=== PATIENT | male | born 1945 | race Caucasian/White ===

== ENCOUNTER → 2016-03-14 | Outpatient (CLI) | payer BC | END | disposition home or self-care (01) | LOC: PCVCIMAG 09:23 | PROVIDERS: ATTEND Internal Medicine | DX: I25.10 Atherosclerotic heart disease of native coronary artery without angina pectoris (principal); I65.23 Occlusion and stenosis of bilateral carotid arteries; G47.30 Sleep apnea, unspecified; I77.9 Disorder of arteries and arterioles, unspecified; I77.810 Thoracic aortic ectasia; E78.00 Pure hypercholesterolemia, unspecified; I10 Essential (primary) hypertension; I73.9 Peripheral vascular disease, unspecified | CPT/HCPCS: 80061; 93005; 93880 ==

== ENCOUNTER → 2016-09-19 | Outpatient (CLI) | payer BC | END | disposition home or self-care (01) | LOC: PCVCCLINIC 09:50 | PROVIDERS: ATTEND Internal Medicine | DX: I25.10 Atherosclerotic heart disease of native coronary artery without angina pectoris (principal); I10 Essential (primary) hypertension; I71.2 Thoracic aortic aneurysm, without rupture; E11.9 Type 2 diabetes mellitus without complications; G47.33 Obstructive sleep apnea (adult) (pediatric); I73.9 Peripheral vascular disease, unspecified; I65.23 Occlusion and stenosis of bilateral carotid arteries; E03.9 Hypothyroidism, unspecified; J45.909 Unspecified asthma, uncomplicated; Z87.442 Personal history of urinary calculi; Z95.1 Presence of aortocoronary bypass graft; Z79.82 Long term (current) use of aspirin; Z79.84 Long term (current) use of oral hypoglycemic drugs | CPT/HCPCS: 80061; G0463 ==

== ENCOUNTER → 2016-09-19 | Outpatient (CLI) | payer BC ==
--- NOTE | 2016-09-19 10:09 | PCVCIMAG ---
APPROVED REPORT Study performed: 09/19/2016 09:00:10 EXAM: Comprehensive 2D, Doppler, and color-flow Echocardiogram Patient Location: Echo lab Status: routine Other Information Study Quality: Adequate Indications CAD Thoracic Aortic Aneurysm 2D Dimensions LVEF(%): 39.24 (>50%) IVSd: 17.55 (7-11mm) LVDd: 37.84 mm PWd: 15.87 (7-11mm)Ascending Ao: 42.69 (22-36mm) LVDs: 30.78 (25-40mm) Left Atrium: 44.83 (27-40mm) Aortic Root: 41.30 mm LV Single Plane 4CH: 59.51 % LV Single Plane 2CH: 56.62 %Carrasco's LVEF: 58.06 % Biplane EF: 58.4 % Volumes Left Atrial Volume (Systole) Single Plane 4CH: 71.99 mLSingle Plane 2CH: 86.26 mL LA ESV Index: 36.00 mL/m2 Aortic Valve AoV Peak Amos.: 1.54 m/s AO Peak Gr.: 9.47 mmHgLVOT Max P.51 mmHg LVOT Max V: 0.79 m/s Mitral Valve E/A Ratio: 0.8 MV Decel. Time: 282.00 ms MV E Max Amos.: 0.57 m/s MV A Amos.: 0.69 m/s IVRT: 131.49 ms Pulmonary Valve PV Peak Amos.: 0.72 m/sPV Peak Gr.: 2.09 mmHg Pulmonary Vein P Vein S: 0.23 m/sP Vein A: 0.27 m/s P Vein D: 0.32 m/sP Vein A Dur.: 117.6 msec P Vein S/D Ratio: 0.72 Left Ventricle The left ventricle is normal size. There is normal LV segmental wall motion. Moderate concentric left ventricular hypertrophy. Left ventricular systolic function is normal. The left ventricular ejection fraction is within the normal range. LVEF is 55-60%. Grade I diastolic dysfunction Right Ventricle The right ventricle is normal size. The right ventricular systolic function is normal. Atria Left atrium is mildly dilated. Right atrium is mildly dilated. Aortic Valve The aortic valve is calcified without stenosis No aortic regurgitation is present. There is no aortic valvular stenosis. Mitral Valve Mild-moderate mitral annular calcification No mitral valve regurgitation noted. No evidence of mitral valve stenosis. Tricuspid Valve The tricuspid valve is normal in structure. There is no tricuspid valve regurgitation noted. Pulmonic Valve The pulmonary valve is normal in structure. There is no pulmonic valvular regurgitation. 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 IVC is normal in size and collapses with >50% inspiration Pericardium There is no pericardial effusion. <Conclusion> Left ventricular systolic function is normal. There is normal LV segmental wall motion. Moderate LVH LVEF is 55-60%. Grade I diastolic dysfunction The aortic valve is calcified without stenosis or insufficiency Mild-moderate mitral annular calcification No mitral valve regurgitation noted. 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 There is no pericardial effusion.
== END | disposition home or self-care (01) ==
LOC: PCVCIMAG 09:38
PROVIDERS: ATTEND Internal Medicine
DX: I44.0 Atrioventricular block, first degree (principal); I51.7 Cardiomegaly; I25.10 Atherosclerotic heart disease of native coronary artery without angina pectoris; I10 Essential (primary) hypertension; I71.2 Thoracic aortic aneurysm, without rupture; I73.9 Peripheral vascular disease, unspecified; G47.33 Obstructive sleep apnea (adult) (pediatric); E11.9 Type 2 diabetes mellitus without complications; I70.0 Atherosclerosis of aorta; K21.9 Gastro-esophageal reflux disease without esophagitis; E03.9 Hypothyroidism, unspecified; Z87.442 Personal history of urinary calculi; Z79.82 Long term (current) use of aspirin; Z79.84 Long term (current) use of oral hypoglycemic drugs; Z95.1 Presence of aortocoronary bypass graft
CPT/HCPCS: 80061; 93005; 93306; G0463

== ENCOUNTER → 2017-03-30 | Outpatient (CLI) | payer BC | END | disposition home or self-care (01) | LOC: PCVCCLINIC 09:57 | DX: I25.10 Atherosclerotic heart disease of native coronary artery without angina pectoris (principal); I73.9 Peripheral vascular disease, unspecified; E78.5 Hyperlipidemia, unspecified; I10 Essential (primary) hypertension; I65.23 Occlusion and stenosis of bilateral carotid arteries; I71.2 Thoracic aortic aneurysm, without rupture; G47.33 Obstructive sleep apnea (adult) (pediatric); E11.9 Type 2 diabetes mellitus without complications; R94.31 Abnormal electrocardiogram [ECG] [EKG]; I45.10 Unspecified right bundle-branch block; Z79.899 Other long term (current) drug therapy; Z79.82 Long term (current) use of aspirin; Z79.84 Long term (current) use of oral hypoglycemic drugs | CPT/HCPCS: 80061; 93005; G0463 ==

== ENCOUNTER → 2017-09-29 | Outpatient (CLI) | payer MEDICARE, BC | END | disposition home or self-care (01) | LOC: PCVCIMAG 08:31 | DX: I65.23 Occlusion and stenosis of bilateral carotid arteries (principal); I73.9 Peripheral vascular disease, unspecified; E78.00 Pure hypercholesterolemia, unspecified; I10 Essential (primary) hypertension; E11.9 Type 2 diabetes mellitus without complications; I25.10 Atherosclerotic heart disease of native coronary artery without angina pectoris; I71.2 Thoracic aortic aneurysm, without rupture; G47.33 Obstructive sleep apnea (adult) (pediatric); Z88.8 Allergy status to other drugs, medicaments and biological substances; Z79.82 Long term (current) use of aspirin; Z79.899 Other long term (current) drug therapy | CPT/HCPCS: 93005; 93306; 93880; 93925; G0463 ==

== ENCOUNTER → 2018-04-01 | Outpatient (CLI) | payer BC | END | disposition home or self-care (01) | LOC: PCVCCLINIC 11:22 | PROVIDERS: ATTEND Internal Medicine | DX: I25.10 Atherosclerotic heart disease of native coronary artery without angina pectoris (principal); I73.9 Peripheral vascular disease, unspecified; E78.5 Hyperlipidemia, unspecified; I10 Essential (primary) hypertension; I65.23 Occlusion and stenosis of bilateral carotid arteries; I71.2 Thoracic aortic aneurysm, without rupture; G47.33 Obstructive sleep apnea (adult) (pediatric); E11.9 Type 2 diabetes mellitus without complications; K21.9 Gastro-esophageal reflux disease without esophagitis; E78.00 Pure hypercholesterolemia, unspecified; E03.9 Hypothyroidism, unspecified; G47.30 Sleep apnea, unspecified; Z79.82 Long term (current) use of aspirin; Z88.8 Allergy status to other drugs, medicaments and biological substances; Z72.89 Other problems related to lifestyle | CPT/HCPCS: 93005; G0463 ==

== ENCOUNTER → 2018-10-05 | Outpatient (CLI) | payer BC ==
--- NOTE | 2018-10-05 08:56 | PCVCIMAG ---
APPROVED REPORT Indications Stenosis Risk Factors Diabetes Doppler Spectral Velocity Analysis PSV / EDVPSV / EDV ECA (R) 85 / 12 cm/sECA (L) 108 / 13 cm/s dICA (R) 53 / 19 cm/sdICA (L) 69 / 26 cm/s Donny (R) 65 / 19 cm/smICA (L) 94 / 24 cm/s pICA (R) 76 / 16 cm/spICA (L) 110 / 31 cm/s Bulb (R) 64 / 13 cm/sBulb (L) 93 / 24 cm/s dCCA (R) 61 / 13 cm/sdCCA (L) 64 / 18 cm/s mCCA (R) 79 / 18 cm/smCCA (L) 99 / 20 cm/s Vert (R) 32 / 12 cm/sVert (L) 37 / 11 cm/s ICA/CCA 0.95ICA/CCA 1.11 Basic Measurements Blood Pressure: Pulses: Right Left RightLeft Brachial(Sitting) 120/87kpQa536/74mmHgTemporal Real Time B-Mode Imaging Vert. (R)AntegradeVert. (L)Antegrade Findings The right carotid bulb has moderate plaque. The right proximal internal carotid artery shows <40% stenosis. The right common carotid artery shows no significant stenosis. The right external carotid artery shows no significant stenosis. The left carotid bulb has moderate calcified plaque. The left proximal internal carotid artery shows <40% stenosis. The left common carotid artery shows no significant stenosis. The left external carotid artery shows no significant stenosis. Conclusion 1. Right internal carotid artery stenosis (<40%) 2. Left internal carotid artery stenosis (<40%) 3. Antegrade vertebral flow
--- NOTE | 2018-10-05 09:34 | PCVCIMAG ---
APPROVED REPORT Study performed: 10/05/2018 08:36:19 EXAM: Comprehensive 2D, Doppler, and color-flow Echocardiogram Patient Location: Echo lab Status: routine BSA: 2.21 HR: 64 bpmBP: 124/74 mmHg Rhythm: NSR Other Information Study Quality: Adequate Technically limited study due to body habitus. Risk Factors: Cardiac Risk Factors: HTN, Hyperlipidemia, DM Indications CAD Thoracic aortic aneurysm 2D Dimensions IVSd: 16.20 (7-11mm)LVOT Diam: 26.00 (18-24mm) LVDd: 44.54 mm PWd: 16.40 (7-11mm)Ascending Ao: 43.82 (22-36mm) LVDs: 30.67 (25-40mm) Left Atrium: 40.55 (27-40mm) Aortic Root: 46.17 mm LV Single Plane 4CH: 58.24 % LV Single Plane 2CH: 64.22 % Volumes Left Atrial Volume (Systole) Single Plane 4CH: 112.49 mLSingle Plane 2CH: 86.46 mL LA ESV Index: 48.00 mL/m2 Aortic Valve AoV Peak Amos.: 1.73 m/s AO Peak Gr.: 11.99 mmHgLVOT Max P.80 mmHg LVOT Max V: 0.80 m/s JACQUI Vmax: 2.41 cm2 Mitral Valve E/A Ratio: 1.0 MV Decel. Time: 223.87 ms MV E Max Amos.: 0.65 m/s MV A Amos.: 0.62 m/s IVRT: 96.89 ms Pulmonary Valve PV Peak Amos.: 0.77 m/sPV Peak Gr.: 2.40 mmHg Tricuspid Valve RAP Estimate: 7.00 mmHg Left Ventricle The left ventricle is normal size. There is normal LV segmental wall motion. Moderate concentric left ventricular hypertrophy. Left ventricular systolic function is normal. The left ventricular ejection fraction is within the normal range. LVEF is 60-65%. Moderate diastolic dysfunction is present (pseudonormal filling). Right Ventricle The right ventricle is normal size. The right ventricular systolic function is normal. Atria Left atrium is severely dilated. Right atrium is dilated. Aortic Valve Mild aortic valve calcification. Trace aortic regurgitation. There is no aortic valvular stenosis. Mitral Valve Moderate mitral annular calcification. There is no mitral valve regurgitation noted. No evidence of mitral valve stenosis. Tricuspid Valve The tricuspid valve is normal in structure. Trace tricuspid regurgitation. Unable to assess PA pressure. Pulmonic Valve The pulmonary valve is normal in structure. Trace pulmonic regurgitation. Great Vessels The aortic root is normal in size. The sinus of valsalva is 4.6 cm and the ascending aorta is moderately dilated (4.5 cm). IVC is normal in size and collapses >50% with inspiration. Pericardium There is no pericardial effusion. <Conclusion> Left ventricular systolic function is normal. There is normal LV segmental wall motion. LVEF is 60-65%. Moderate concentric left ventricular hypertrophy. Moderate diastolic dysfunction Left atrium is severely dilated. Mild aortic valve calcification, no stenosis. Trace aortic regurgitation. Moderate mitral annular calcification. No mitral valve regurgitation Pulmonary artery systolic pressure cannot be reliably ascertained. The sinus of valsalva is 4.6 cm and the ascending aorta is moderately dilated (4.5 cm). There is no pericardial effusion.
== END | disposition home or self-care (01) ==
LOC: PCVCIMAG 07:49
PROVIDERS: ATTEND Internal Medicine
DX: I65.23 Occlusion and stenosis of bilateral carotid arteries (principal); I08.0 Rheumatic disorders of both mitral and aortic valves; I71.2 Thoracic aortic aneurysm, without rupture; I25.10 Atherosclerotic heart disease of native coronary artery without angina pectoris; I10 Essential (primary) hypertension
CPT/HCPCS: 93306; 93880